=== PATIENT | female | born 2005 ===

== ENCOUNTER 2024-04-01 08:49 | Outpatient (REF) | payer OTHER, SELFPAY ==
--- NOTE | ~2024-04-01 | US_ITS ---
EXAMINATION: US PELVIS CLINICAL INFORMATION: Irregular menses. 18-year-old, currently menstruating COMPARISON: None available. TECHNIQUE: Ultrasound of the pelvis is performed using both transabdominal and transvaginal transducers along with Doppler. Transvaginal imaging is performed due to inadequate visualization transabdominally. FINDINGS: Uterus: The uterus is anteverted and measures 6.2 x 2.1 x 4.2 cm. The double wall endometrial thickness is 4 mm. The uterus is smooth in contour and has normal myometrial echogenicity. No visible fibroid. Adnexa: Both ovaries are visualized. There is normal color flow to the adnexa. There is no ovarian torsion. There is no pelvic ascites or fluid collection. Right ovary measures 1.7 x 0.6 x 2.1 cm. Left ovary measures 2.1 x 1.7 x 1.8 cm. US/US pelvic complete IMPRESSION: Unremarkable pelvic ultrasound.
== END 2024-04-01 08:50 | disposition home or self-care (01) ==
LOC: HO.UMASIMG 08:49
PROVIDERS: Visit Provider Nurse Practitioner Women's Health
DX: N92.6 Irregular menstruation, unspecified (principal)
CPT/HCPCS: 76856